=== PATIENT | male | born 1955 | race Caucasian/White ===

== ENCOUNTER → 2017-03-07 | Outpatient (CLI) | payer MEDICAID | LOC: FIMAGING 08:03 | PROVIDERS: ATTEND Physician Assistant | DX: M75.02 Adhesive capsulitis of left shoulder (principal); M75.52 Bursitis of left shoulder; M76.892 Other specified enthesopathies of left lower limb, excluding foot; M51.86 Other intervertebral disc disorders, lumbar region ==